=== PATIENT | female | born 1950 | race Caucasian/White ===

== ENCOUNTER 2024-06-22 13:21 | Inpatient (IN) | payer MEDICARE, OTHER ==
[~2024-06-22] VITALS: Ht 160 cm; Wt 59.9 kg
[2024-06-22 14:04] LABS: BASOPHILS % (AUTO) 0.6 % (0.0-2.0); EOSINOPHILS # (AUTO) 0.1 K/uL (0.0-0.7); EOSINOPHILS % (AUTO) 1.7 % (0.0-6.0); HEMATOCRIT 43 % (33-45); HEMOGLOBIN 13.9 g/dL (11.5-14.8); LYMPHOCYTES # (AUTO) 2.3 K/uL (0.8-4.8); LYMPHOCYTES % (AUTO) 35.1 % (20.0-44.0); MEAN CORPUSCULAR HEMOGLOBIN 27 PG (26.0-33.0); MEAN CORPUSCULAR HGB CONC 33 g/dl (31.0-36.0); MEAN CORPUSCULAR VOLUME 82 fL (82-100); MONOCYTES # (AUTO) 0.6 K/uL (0.1-1.30); MONOCYTES % (AUTO) 9.3 % (2.0-12.0); NEUTROPHILS # (AUTO) 3.4 K/uL (1.8-8.9); NEUTROPHILS % (AUTO) 53.3 % (43.0-81.0); PLATELET COUNT (AUTO) 240 K/uL (150-450); RED BLOOD CELL COUNT(AUTO) 5.19 MIL/uL (4.0-5.2); RED CELL DISTRIBUTION WIDTH 13.6 % (11.5-15.0); WHITE BLOOD COUNT (AUTO) 6.5 K/uL (4.3-11.0)
[2024-06-22 14:11] LABS: CARBON DIOXIDE 26 mmol/L (21-32); CHLORIDE 104 mmol/L (98-107); CREATININE 1.1 mg/dL (0.6-1.3); GLUCOSE 148 mg/dL (74-106); POTASSIUM 3.2 mmol/L (3.5-5.1); SODIUM SERUM 138 mmol/L (136-145); UREA NITROGEN, BLOOD 12 mg/dL (7-18)
[2024-06-22 14:24] LABS: ALANINE AMINOTRANSFERASE 32 U/L (12-78); ALBUMIN 3.2 g/dL (3.4-5.0); ALCOHOL, BLOOD < 3 mg/dL (0-10); ALKALINE PHOSPHATASE 100 U/L (46-116); ASPARTATE AMINOTRANSFERASE 29 U/L (15-37); BILIRUBIN,DIRECT 0.2 mg/dL (0.0-0.2); BILIRUBIN,TOTAL 0.8 mg/dL (0.2-1.0); TOTAL PROTEIN, SERUM 7.6 g/dL (6.4-8.2)
[2024-06-22 14:25] LABS: ACETAMINOPHEN <10 ug/ml (10-30); SALICYLATE 0.6 mg/dL (2.8-20.0)
[2024-06-22] MEDS ORDERED: BISA-79 PO (14:32)
[2024-06-22] MEDS ORDERED: BISA10SU11 RC (14:32)
[2024-06-22] MEDS ORDERED: VALB40CA2 PO (14:32)
[2024-06-22] MEDS ORDERED: MAGN400O6 PO (14:32)
[2024-06-22] MEDS ORDERED: ACET325T53 PO (14:32)
[2024-06-22] MEDS ORDERED: ATOR10TA PO (14:32)
[2024-06-22] MEDS ORDERED: CARB32DR EACHEYE (14:32)
[2024-06-22 16:56] LABS: APPEARANCE,URINE Cloudy (CLEAR); BILIRUBIN,URINE Negative (NEGATIVE); BLOOD, URINE Trace-intact Ery/uL (NEGATIVE); COLOR,URINE YELLOW (YELLOW); KETONES,URINE Negative (NEGATIVE); LEUKOCYTE ESTERASE ,URINE Small (NEGATIVE); NITRITE, URINE Positive (NEGATIVE); PH,URINE 5.5 (5.0-8.0); PROTEIN,URINE Negative (NEGATIVE); UGLUCOSE Negative (NEGATIVE); UROBILINOGEN,URINE 0.2 EU/dL (0.2)
[2024-06-22 17:09] LABS: AMPHETAMINE, URINE NEGATIVE (NEGATIVE); BARBITURATE, URINE NEGATIVE (NEGATIVE); BENZODIAZEPINE, URINE NEGATIVE (NEGATIVE); CANNABINOID, URINE NEGATIVE (NEGATIVE); COCCAINE, URINE NEGATIVE (NEGATIVE); OPIATE, URINE NEGATIVE (NEGATIVE); PHENCYCLIDINE SCREEN,URINE NEGATIVE (NEGATIVE)
[2024-06-22 17:42] LABS: ADD URINE CULTURE YES; BACTERIA,URINE 2+ /HPF (None Seen); WBC,URINE 21-50 /HPF (0-3)
[2024-06-22 17:43] LABS: SQUAMOUS EPITHELIAL CELL,UR Moderate /HPF (None Seen)
[2024-06-22] MEDS ORDERED: MAG HYDROX/AL HYDROX/SIMETH 30 ML UDC PO PRN (18:30)
[2024-06-22] MEDS ORDERED: QUETIAPINE FUMARATE 25 MG TABLET PO PRN (18:30)
[2024-06-22] MEDS ORDERED: MAGNESIUM HYDROXIDE 30 ML UDC PO PRN (18:30)
[2024-06-22] MEDS ORDERED: ZOLPIDEM TARTRATE 5 MG TABLET PO PRN (18:30)
[2024-06-22] MEDS ORDERED: ACETAMINOPHEN 325 MG TABLET PO PRN (18:30)
[2024-06-22 21:25] VITALS: BP 115/72; TEMP 98.2; O2SAT 96
[2024-06-23] MEDS: POTASSIUM CHLORIDE 20 MEQ TAB.PRT.SR PO ONE (00:12)
[2024-06-23] MEDS: OLANZAPINE 2.5 MG TABLET PO SCH (00:12)
[2024-06-23] MEDS: CIPROFLOXACIN HCL 250 MG TABLET PO ONE (00:22)
[2024-06-23 08:00] VITALS: BP 97/73; TEMP 97.8; O2SAT 96
[2024-06-23] MEDS ORDERED: POLYVINYL ALCOHOL 15 ML BOTTLE EACHEYE PRN (08:00)
[2024-06-23] MEDS: DIVALPROEX SODIUM 125 MG TABLET.DR PO SCH (08:19)
[2024-06-23] MEDS: CIPROFLOXACIN HCL 250 MG TABLET PO SCH (08:19)
[2024-06-23 16:00] VITALS: BP 92/76; TEMP 97.8; O2SAT 96
[2024-06-23 16:22] LABS: ALANINE AMINOTRANSFERASE 19 U/L (12-78); ALBUMIN 2.7 g/dL (3.4-5.0); ALKALINE PHOSPHATASE 101 U/L (46-116); ASPARTATE AMINOTRANSFERASE 19 U/L (15-37); BILIRUBIN,TOTAL 0.4 mg/dL (0.2-1.0); CALCIUM, SERUM 8.2 mg/dL (8.5-10.1); CARBON DIOXIDE 29 mmol/L (21-32); CHLORIDE 104 mmol/L (98-107); GLUCOSE 137 mg/dL (74-106); POTASSIUM 3.6 mmol/L (3.5-5.1); SODIUM SERUM 141 mmol/L (136-145); TOTAL PROTEIN, SERUM 6.8 g/dL (6.4-8.2); UREA NITROGEN, BLOOD 13 mg/dL (7-18)
[2024-06-23 16:24] LABS: CHOLESTEROL 128 mg/dL (<200); HDL CHOLESTEROL 48 mg/dL (40-60); LDL 64 mg/dL (0-99); TRIGLYCERIDES 107 mg/dL (30-150)
[2024-06-23 20:00] VITALS: BP 99/63; TEMP 97.5; O2SAT 99
[2024-06-23] MEDS: ATORVASTATIN 10 MG TABLET PO SCH (21:25)
[2024-06-23] MEDS ORDERED: Medication Not On Formulary EA (Valbenazine Tosylate (Ingrezza) 40 MG) PO SCH (22:00)
[2024-06-24 08:00] VITALS: BP 105/94; TEMP 97.5; O2SAT 97
[2024-06-24] MEDS: OLANZAPINE 2.5 MG TABLET PO SCH (12:09)
[2024-06-24] MEDS: DIVALPROEX SODIUM 125 MG TABLET.DR PO SCH (14:06)
[2024-06-24 16:00] VITALS: BP 126/69; TEMP 98; O2SAT 98
[2024-06-24 20:07] VITALS: BP 126/80; TEMP 99.1; O2SAT 95
[2024-06-25 08:00] VITALS: BP 94/65; TEMP 97.9; O2SAT 96
[2024-06-25 16:00] VITALS: BP 95/67; TEMP 97.7; O2SAT 96
[2024-06-25] MEDS: OLANZAPINE 5 MG TABLET PO SCH (21:06)
[2024-06-26 08:00] VITALS: BP 107/57; TEMP 97.5; O2SAT 96
[2024-06-26 16:00] VITALS: BP 121/82; TEMP 97.6; O2SAT 100
[2024-06-26 20:00] VITALS: BP 143/85; TEMP 98.1; O2SAT 98
[2024-06-27 08:00] VITALS: BP 98/64; TEMP 98.2; O2SAT 100
[2024-06-27 16:00] VITALS: BP 124/78; TEMP 98.2; O2SAT 97
[2024-06-27 20:41] VITALS: BP 134/79; TEMP 98.6; O2SAT 96
[2024-06-28 08:00] VITALS: BP 113/68; TEMP 98.5; O2SAT 97
[2024-06-28 16:00] VITALS: BP 113/79; TEMP 98.2; O2SAT 96
[2024-06-28] MEDS: OLANZAPINE 5 MG TABLET PO SCH (20:39)
[2024-06-28 21:40] VITALS: BP 97/74; TEMP 98.2; O2SAT 96
[2024-06-29 08:00] VITALS: BP 98/59; TEMP 97.9; O2SAT 97
[2024-06-29] MEDS: OLANZAPINE 5 MG TABLET PO SCH (09:30)
[2024-06-29 16:00] VITALS: BP 96/57; TEMP 97.9; O2SAT 95
[2024-06-29 20:39] VITALS: BP 102/66; TEMP 98.4; O2SAT 95
[2024-06-30 08:00] VITALS: BP 100/70; TEMP 98; O2SAT 97
[2024-06-30 16:00] VITALS: BP 110/69; TEMP 98.1; O2SAT 96
[2024-06-30] MEDS: OLANZAPINE 5 MG TABLET PO SCH (17:27)
[2024-06-30 20:00] VITALS: BP 119/60; TEMP 97.8; O2SAT 95
[2024-06-30] MEDS: DIVALPROEX SODIUM 125 MG TABLET.DR PO SCH (21:41)
[2024-07-01 08:00] VITALS: BP 128/57; TEMP 97.9; O2SAT 95
[2024-07-01 16:00] VITALS: BP 107/80; TEMP 97.6; O2SAT 98
[2024-07-01 19:49] VITALS: BP 115/74; TEMP 98.6; O2SAT 97
[2024-07-01 20:00] VITALS: BP 115/74; TEMP 98.6; O2SAT 97
[2024-07-02 08:57] VITALS: BP 111/83; TEMP 98; O2SAT 96
== END 2024-07-02 12:35 | DRG 885 ==
LOC: ER 13:21 → GPS 17:16
PROVIDERS: ADMIT Psychiatry & Neurology Psychiatry; ATTEND Student in an Organized Health Care Education/Training Program
DX: F20.0 Paranoid schizophrenia (principal); N39.0 Urinary tract infection, site not specified; G93.49 Other encephalopathy; E44.0 Moderate protein-calorie malnutrition; F03.918 Unspecified dementia, unspecified severity, with other behavioral disturbance; E78.5 Hyperlipidemia, unspecified; E87.6 Hypokalemia; E88.09 Other disorders of plasma-protein metabolism, not elsewhere classified; Z20.822 Contact with and (suspected) exposure to COVID-19; D50.9 Iron deficiency anemia, unspecified; G24.01 Drug induced subacute dyskinesia; Z79.899 Other long term (current) drug therapy; F29 Unspecified psychosis not due to a substance or known physiological condition; R73.9 Hyperglycemia, unspecified; Z73.6 Limitation of activities due to disability; B96.89 Other specified bacterial agents as the cause of diseases classified elsewhere; Z85.828 Personal history of other malignant neoplasm of skin; Z86.16 Personal history of COVID-19
CPT/HCPCS: 36415; 80048-TC; 80053-TC; 80061-TC; 80076-TC; 80164-TC; 81001; 82565-TC; 85025-TC; 87081-TC; 87086-TC; G0480